=== PATIENT | female | born 1990 | race Caucasian/White ===

== ENCOUNTER 2018-11-30 16:53 | Emergency (ER) | payer MEDICAID, OTHER ==
[~2018-11-30] VITALS: Ht 157.5 cm; Wt 45.4 kg
[~2018-11-30 16:53] MED LIST: FERR325E14 PO; IBUP-974 PO; PREN-385 PO
[2018-11-30 16:55] VITALS: BP 105/63
--- NOTE | 2018-11-30 17:00 | NUR ---
28y/f bib self with c/o 06/09 non provoked intermittent non radiating left sided chest pain x 2 days. Patient denies any fevers, cough, or sob. Patient sts when cp occurs, her left arm becomes tingly and numb. Patient denies any cp at this time. pt [id number], vss, bed down, bedrail up x 1, er md aware and notified of pt status. hx--patient denies rx--patient denies
--- NOTE | 2018-11-30 17:11 | NUR ---
Patient being evaluated by physician at bedside.
[2018-11-30 17:23] VITALS: BP 105/63
== END 2018-11-30 17:23 | disposition home or self-care (01) ==
LOC: MED 16:53
DX: R07.89 Other chest pain (principal); Z79.899 Other long term (current) drug therapy
CPT/HCPCS: 99282